=== PATIENT | male | born 2000 | race Two or more races ===

== ENCOUNTER 2024-12-15 19:07 | Emergency (ER) | payer SELFPAY ==
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
[2024-12-15 19:15] VITALS: PULSE 91; RESP 18; O2SAT 94
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
[2024-12-15] MEDS: Diph,Pertuss(Acell),Tet Vac/Pf 0.5 ML SYR IM (19:41)
[2024-12-15] MEDS: oxyCODONE 5 MG TAB PO ×2 (19:41→22:07)
[2024-12-15] MEDS: Ibuprofen 600 MG TAB PO (19:41)
[2024-12-15] MEDS: Acetaminophen 500 MG TAB 1000 MG PO (19:41)
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
[2024-12-15] MEDS: ceFAZolin 2,000 MG in Normal Saline 100 ML 200 MG IVPB (21:46)
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
[2024-12-15] MEDS: Amoxicillin 500 MG CAP PO (22:07)
[2024-12-15] MEDS: Sulfameth/Trimeth DS TAB 1 TAB PO (22:07)
[2024-12-15 22:48] VITALS: BP 122/74; PULSE 78; RESP 18; TEMP 36.9; O2SAT 97
== END 2024-12-15 22:14 | disposition home or self-care (01) ==
PROVIDERS: Emergency Provider General Practice
DX: S81.831A Puncture wound without foreign body, right lower leg, initial encounter (principal); W29.4XXA Contact with nail gun, initial encounter
CPT/HCPCS: 99284; 99283; 90471; 90715; 96365; 73590; 73700; J0690